=== PATIENT | male | born 1945 | race Two or more races ===

== ENCOUNTER 2024-01-09 11:24 | Emergency (ER) | payer OTHER, MEDICAID ==
[~2024-01-09] VITALS: Ht 160 cm; Wt 79.0 kg
[2024-01-09] MEDS: KETOROLAC TROMETH 30 MG/ML 1ML VIAL IM ONE (12:03)
[2024-01-09] MEDS ORDERED: CYCL-837 PO (12:12)
[2024-01-09] MEDS ORDERED: LIDO5DIS21 TOP (12:12)
[2024-01-09 12:16] VITALS: BP 157/96; PULSE 108; RESP 16; TEMP 97.7; O2SAT 98
== END 2024-01-09 12:18 | disposition home or self-care (01) ==
LOC: ER 11:24
DX: S33.5XXA Sprain of ligaments of lumbar spine, initial encounter (principal); W18.39XA Other fall on same level, initial encounter; Y93.89 Activity, other specified; Y92.89 Other specified places as the place of occurrence of the external cause; Y99.8 Other external cause status
CPT/HCPCS: 96372; 99283; J1885